=== PATIENT | female | born 1955 | race Hispanic/Latino ===

== ENCOUNTER 2019-03-10 08:52 | Outpatient (CLI) | payer MEDICARE ==
--- NOTE | 2019-03-10 09:05 | RAD ---
XR Shoulder Rt 3 View STANDARD: 03/10/2019 12:00 AM CLINICAL INDICATION: Pain COMPARISON: None. FINDINGS: Fracture:No fracture. Arthropathy:Mild right AC joint osteoarthritis Incidental findings:None of significance. IMPRESSION: 1. No acute osseous abnormality.
== END 2019-03-10 08:53 | disposition home or self-care (01) ==
LOC: SCSRAD 08:52
PROVIDERS: ATTEND Nurse Practitioner Family
DX: M25.511 Pain in right shoulder (principal)

== ENCOUNTER 2019-03-19 12:15 | Outpatient (CLI) | payer MEDICARE ==
--- NOTE | 2019-03-19 13:03 | MMO ---
Bilateral MAMMO Bilat Screen [facility]. CLINICAL HISTORY: Patient is 64 years old and is seen for screening. The patient has no family history of breast cancer. The patient has no personal history of cancer. VIEWS: The views performed were: bilateral craniocaudal with tomosynthesis and bilateral mediolateral oblique with tomosynthesis. FILMS COMPARED: The present examination has been compared to prior imaging studies performed at [facility] on 04/17/2005, 10/17/2006 and 01/15/2012. This study has been interpreted with the assistance of computer-aided detection. MAMMOGRAM FINDINGS: There are scattered fibroglandular densities. There are no suspicious masses, suspicious calcifications, or new areas of architectural distortion. IMPRESSION: THERE IS NO MAMMOGRAPHIC EVIDENCE OF MALIGNANCY. A ROUTINE FOLLOW-UP MAMMOGRAM IN 1 YEAR IS RECOMMENDED. THE RESULTS OF THIS EXAM WERE SENT TO THE PATIENT. ACR BI-RADS Category 1 - Negative MAMMOGRAPHY NOTE: 1. A negative mammogram report should not delay a biopsy if a dominant of clinically suspicious mass is present. 2. Approximately 10% to 15% of breast cancers are not detected by mammography. 3. Adenosis and dense breasts may obscure an underlying neoplasm. Reported by: NEFTALI BLOOM MD Electonically Signed: [id number]
== END 2019-03-19 12:16 | disposition home or self-care (01) ==
LOC: BICMAMMO 12:15
PROVIDERS: ATTEND Nurse Practitioner Family
DX: Z12.31 Encounter for screening mammogram for malignant neoplasm of breast (principal)
CPT/HCPCS: 77063; 77067

== ENCOUNTER 2021-04-07 09:25 | Inpatient (IN) | payer MEDICARE ==
[2021-04-07 09:50] LABS: #Basophils 0.1 thou/uL (0.0-0.2); #Eosinphils 0.2 thou/uL (0.0-0.7); #Lymphocytes 2.5 thou/uL (1.20-3.40); #Monocytes 0.5 thou/uL (0.11-0.59); #Neutrophils 8.4 thou/uL (1.40-6.50); %Basophils 1.1 % (0.0-1.0); %Eosinophils 2.1 % (0.0-10.0); %Lymphocytes 21.5 % (21.0-51.0); %Monocytes 4.2 % (0.0-10.0); %Neutrophils 71.2 % (42.0-75.0); Hemoglobin 15.3 g/dL (12.0-16.0); Mean Corpuscular HGB CONC 33.9 g/dL (32.0-36.0); Mean Corpuscular Hemoglobin 31.9 pg (27.0-31.0); Mean Corpuscular Volume 94.3 fL (78.0-98.0); Mean Platelet Volume 8.6 fL (7.4-10.4); Platelet Count 238 thou/uL (130-400); Red Blood Cell (RBC) Count 4.78 mill/uL (4.20-5.40); White Blood Cell (WBC) Count 11.7 thou/uL (4.8-10.8)
[2021-04-07 10:01] LABS: Prothrombin Time 12.8 sec (12.0-14.7)
[2021-04-07 10:10] LABS: ALT (SGPT) 23 U/L (8-55); AST (SGOT) 18 U/L (5-34); Albumin 4.2 g/dL (3.4-4.8); Alkaline Phosphatase 147 U/L (40-110); Anion Gap 16 mmol/L (10-20); BUN (Urea Nitrogen) 10 mg/dL (9.8-20.1); Bilirubin, Total 0.5 mg/dL (0.2-1.2); Calc. Creatinine Clearance 0 mL/min (70-130); Calcium 9.2 mg/dL (7.8-10.44); Carbon Dioxide 24 mmol/L (23-31); Chloride 105 mmol/L (98-107); Globulin 3.5 g/dL (2.4-3.5); Glucose 154 mg/dL (80-115); Potassium 3.8 mmol/L (3.5-5.1); Protein, Total 7.7 g/dL (5.8-8.1); Sodium 141 mmol/L (136-145)
[2021-04-07] MEDS ORDERED: Acetaminophen 500 MG TAB ONE (12:53)
[2021-04-07] MEDS ORDERED: hydrALAZINE 20 MG/ML VIAL SLOW IVP PRN (12:55)
[2021-04-07] MEDS ORDERED: Ondansetron ODT 4 MG TAB PO PRN (12:58)
[2021-04-07] MEDS ORDERED: Acetaminophen 325 MG TAB PO PRN (12:58)
[2021-04-07] MEDS ORDERED: Ondansetron PF 4 MG/2 ML Vial IVP PRN (12:58)
[2021-04-07] MEDS ORDERED: Aspirin Chewable 81 MG TAB ONE (14:14)
[2021-04-07 17:15] VITALS: BMI 35.3
[2021-04-07] MEDS: Famotidine 20 MG TAB PO SCH (20:59)
[2021-04-07] MEDS ORDERED: Nicotine 14 MG PATCH TD SCH (21:00)
[2021-04-07] MEDS ORDERED: Atorvastatin Calcium 40 MG TAB PO SCH (21:00)
[2021-04-08 05:34] LABS: #Basophils 0.1 thou/uL (0.0-0.2); #Eosinphils 0.4 thou/uL (0.0-0.7); #Lymphocytes 2.9 thou/uL (1.20-3.40); #Monocytes 0.7 thou/uL (0.11-0.59); #Neutrophils 4.7 thou/uL (1.40-6.50); %Basophils 1.2 % (0.0-1.0); %Eosinophils 4.8 % (0.0-10.0); %Lymphocytes 33.2 % (21.0-51.0); %Monocytes 7.3 % (0.0-10.0); %Neutrophils 53.5 % (42.0-75.0); Hemoglobin 13.7 g/dL (12.0-16.0); Mean Corpuscular HGB CONC 32.8 g/dL (32.0-36.0); Mean Corpuscular Hemoglobin 31.4 pg (27.0-31.0); Mean Corpuscular Volume 95.5 fL (78.0-98.0); Platelet Count 215 thou/uL (130-400); RBC Distribution Width 12.1 % (11.5-14.5); Red Blood Cell (RBC) Count 4.35 mill/uL (4.20-5.40); White Blood Cell (WBC) Count 8.8 thou/uL (4.8-10.8)
[2021-04-08 05:54] LABS: Anion Gap 13 mmol/L (10-20); BUN (Urea Nitrogen) 11 mg/dL (9.8-20.1); Calc. Creatinine Clearance 88 mL/min (70-130); Calcium 9.3 mg/dL (7.8-10.44); Carbon Dioxide 26 mmol/L (23-31); Cardiac Risk 4.3 (Less than 4.5); Chloride 107 mmol/L (98-107); Cholesterol 188 mg/dl (< 200 Desired); Glucose 131 mg/dL (80-115); HDL Cholesterol 44 mg/dL (>60 Neg Risk); LDL Cholesterol, Calculated 123 mg/dL; Potassium 3.6 mmol/L (3.5-5.1); Sodium 142 mmol/L (136-145); Triglycerides 105 mg/dL (Less than 150)
[2021-04-08] MEDS ORDERED: Aspirin 81 mg Enteric Coated Tablet PO SCH (09:00)
[2021-04-08] MEDS ORDERED: Non-Formulary Item 1 EACH (Sertraline Hcl [Zoloft] 50 MG Tablet) PO SCH (09:00)
[2021-04-08] MEDS ORDERED: Lisinopril 10 MG TAB PO SCH (09:00)
[2021-04-08] MEDS ORDERED: VENLAFAXINE HCL 75 MG PO SCH (09:00)
[2021-04-08] MEDS: Famotidine 20 MG TAB PO SCH (09:11)
[2021-04-08 15:41] LABS: SARS-CoV-2 PCR by NAA Not Detected (NotDetected)
[2021-04-08 16:07] VITALS: BP 125/70; TEMP 98.5
== END 2021-04-08 18:40 | disposition home or self-care (01) | DRG 69 ==
LOC: ERS 09:25 → ERHOLD 13:32 → NEURO 16:37
PROVIDERS: ADMIT Internal Medicine; ATTEND Internal Medicine
DX: G45.9 Transient cerebral ischemic attack, unspecified (principal); Z20.822 Contact with and (suspected) exposure to COVID-19; I16.0 Hypertensive urgency; R73.03 Prediabetes; I10 Essential (primary) hypertension; E78.5 Hyperlipidemia, unspecified; F17.210 Nicotine dependence, cigarettes, uncomplicated; F32.A Depression, unspecified; Z88.2 Allergy status to sulfonamides; Z90.710 Acquired absence of both cervix and uterus; Z79.899 Other long term (current) drug therapy; Z82.49 Family history of ischemic heart disease and other diseases of the circulatory system
CPT/HCPCS: 36415; 36416; 70450; 70496; 70498; 70551; 71045; 80048; 80053; 80061; 83036; 83735; 84443; 84484; 85025; 85610; 85730; 93005; 93306; U0003; U0005

== ENCOUNTER 2021-04-30 18:33 | Inpatient (IN) | payer MEDICARE ==
[~2021-04-30 18:33] MED LIST: Iopamidol-370 76% 500 ML 1 ML ONE
[2021-04-30 18:56] LABS: #Basophils 0.1 thou/uL (0.0-0.2); #Eosinphils 0.3 thou/uL (0.0-0.7); #Lymphocytes 2.6 thou/uL (1.20-3.40); #Monocytes 0.6 thou/uL (0.11-0.59); #Neutrophils 7.8 thou/uL (1.40-6.50); %Eosinophils 2.6 % (0.0-10.0); %Monocytes 5.1 % (0.0-10.0); %Neutrophils 68.3 % (42.0-75.0); Hemoglobin 14.3 g/dL (12.0-16.0); Mean Corpuscular HGB CONC 33.2 g/dL (32.0-36.0); Mean Corpuscular Hemoglobin 32.3 pg (27.0-31.0); Mean Corpuscular Volume 97.2 fL (78.0-98.0); Mean Platelet Volume 8.2 fL (7.4-10.4); Platelet Count 252 thou/uL (130-400); RBC Distribution Width 12.2 % (11.5-14.5); Red Blood Cell (RBC) Count 4.42 mill/uL (4.20-5.40); White Blood Cell (WBC) Count 11.4 thou/uL (4.8-10.8)
[2021-04-30 19:10] LABS: PTT 30.2 sec (22.9-36.1); Prothrombin Time 13.2 sec (12.0-14.7)
[2021-04-30 19:18] LABS: ALT (SGPT) 19 U/L (8-55); AST (SGOT) 16 U/L (5-34); Albumin 4.2 g/dL (3.4-4.8); Alkaline Phosphatase 136 U/L (40-110); Anion Gap 15 mmol/L (10-20); BUN (Urea Nitrogen) 10 mg/dL (9.8-20.1); Bilirubin, Total 0.4 mg/dL (0.2-1.2); Calc. Creatinine Clearance 0 mL/min (70-130); Calcium 9.6 mg/dL (7.8-10.44); Carbon Dioxide 22 mmol/L (23-31); Chloride 108 mmol/L (98-107); Globulin 3.2 g/dL (2.4-3.5); Glucose 109 mg/dL (80-115); Protein, Total 7.4 g/dL (5.8-8.1)
[2021-04-30 19:28] LABS: Sodium 141 mmol/L (136-145)
[2021-04-30] MEDS ORDERED: Aspirin 325 MG TAB ONE (20:15)
[2021-04-30 20:45] LABS: Bilirubin Negative (Negative); Blood, Urine Negative (Negative); Clarity Clear (Clear); Glucose, Urine (Dipstick) Normal (Negative); Ketone, Urine Negative (Negative); Leukocyte Negative Leu/uL (Negative); Nitrite Negative (Negative); Protein, Urine (Dipstick) Negative (Neg-Trace); Specific Gravity, Urine 1.046 (1.002-1.036); Urobilinogen Normal mg/dL (Less than 2); pH, Urine 6.5 (5.0-9.0)
[2021-04-30 21:46] LABS: Troponin I Less than 0.010 ng/mL (< 0.028)
[2021-04-30 21:48] LABS: SARS-CoV-2 NAA Rapid Test Not Detected (NotDetected)
[2021-04-30 22:41] VITALS: BMI 35.5
[2021-05-01 01:23] LABS: Troponin I Less than 0.010 ng/mL (< 0.028)
[2021-05-01] MEDS ORDERED: Ondansetron PF 4 MG/2 ML Vial IVP PRN (13:26)
[2021-05-01] MEDS: Nicotine 14 MG PATCH TOP SCH (13:40)
[2021-05-01] MEDS ORDERED: Aspirin 81 mg Enteric Coated Tablet PO SCH (14:00)
[2021-05-01] MEDS ORDERED: Clopidogrel Bisulfate 75 MG TAB PO SCH (14:00)
[2021-05-01] MEDS ORDERED: hydrALAZINE 20 MG/ML VIAL SLOW IVP PRN (14:13)
[2021-05-01] MEDS ORDERED: Acetaminophen 500 MG TAB PO PRN (14:13)
[2021-05-01] MEDS ORDERED: Labetalol HCl 100 MG/20 ML VIAL SLOW IVP PRN (14:13)
[2021-05-01] MEDS: Famotidine 20 MG TAB PO SCH (20:29)
[2021-05-01] MEDS: Atorvastatin Calcium 40 MG TAB PO SCH (20:29)
[2021-05-02 05:26] LABS: #Basophils 0.1 thou/uL (0.0-0.2); #Eosinphils 0.5 thou/uL (0.0-0.7); #Lymphocytes 1.1 thou/uL (1.20-3.40); #Monocytes 0.5 thou/uL (0.11-0.59); #Neutrophils 5.8 thou/uL (1.40-6.50); %Basophils 0.9 % (0.0-1.0); %Eosinophils 6.8 % (0.0-10.0); %Lymphocytes 14.1 % (21.0-51.0); %Monocytes 6.4 % (0.0-10.0); %Neutrophils 71.7 % (42.0-75.0); Mean Corpuscular HGB CONC 32.7 g/dL (32.0-36.0); Mean Corpuscular Hemoglobin 31.5 pg (27.0-31.0); Mean Corpuscular Volume 96.5 fL (78.0-98.0); Platelet Count 225 thou/uL (130-400); RBC Distribution Width 12.1 % (11.5-14.5); Red Blood Cell (RBC) Count 4.43 mill/uL (4.20-5.40)
[2021-05-02 05:51] LABS: ALT (SGPT) 20 U/L (8-55); AST (SGOT) 25 U/L (5-34); Albumin 3.7 g/dL (3.4-4.8); Alkaline Phosphatase 120 U/L (40-110); Anion Gap 13 mmol/L (10-20); BUN (Urea Nitrogen) 10 mg/dL (9.8-20.1); Bilirubin, Total 0.5 mg/dL (0.2-1.2); Calc. Creatinine Clearance 86 mL/min (70-130); Calcium 9.7 mg/dL (7.8-10.44); Carbon Dioxide 24 mmol/L (23-31); Cardiac Risk 3.4 (Less than 4.5); Chloride 107 mmol/L (98-107); Cholesterol 148 mg/dl (< 200 Desired); Globulin 3.6 g/dL (2.4-3.5); Glucose 115 mg/dL (80-115); HDL Cholesterol 43 mg/dL (>60 Neg Risk); LDL Cholesterol, Calculated 85 mg/dL; Potassium 3.8 mmol/L (3.5-5.1); Protein, Total 7.3 g/dL (5.8-8.1); Sodium 140 mmol/L (136-145); Triglycerides 99 mg/dL (Less than 150)
[2021-05-02] MEDS: Lisinopril 10 MG TAB PO SCH (08:45)
[2021-05-02] MEDS: Aspirin 81 mg Enteric Coated Tablet PO SCH (08:45)
[2021-05-02] MEDS: Famotidine 20 MG TAB PO SCH ×2 (08:45→21:01)
[2021-05-02] MEDS: Clopidogrel Bisulfate 75 MG TAB PO SCH (08:45)
[2021-05-02] MEDS: Nicotine 14 MG PATCH TOP SCH (15:44)
[2021-05-02] MEDS: Atorvastatin Calcium 40 MG TAB PO SCH (21:01)
[2021-05-03] MEDS: Famotidine 20 MG TAB PO SCH ×2 (08:34→22:02)
[2021-05-03] MEDS: Lisinopril 10 MG TAB PO SCH (08:35)
[2021-05-03] MEDS: Clopidogrel Bisulfate 75 MG TAB PO SCH (08:35)
[2021-05-03] MEDS: Aspirin 81 mg Enteric Coated Tablet PO SCH (08:35)
[2021-05-03] MEDS: Nicotine 14 MG PATCH TOP SCH (13:15)
[2021-05-03] MEDS: Atorvastatin Calcium 40 MG TAB PO SCH (22:02)
[2021-05-04] MEDS: Clopidogrel Bisulfate 75 MG TAB PO SCH (08:23)
[2021-05-04] MEDS: Famotidine 20 MG TAB PO SCH ×2 (08:23→20:49)
[2021-05-04] MEDS: Lisinopril 10 MG TAB PO SCH (08:23)
[2021-05-04] MEDS: Aspirin 81 mg Enteric Coated Tablet PO SCH (08:23)
[2021-05-04] MEDS: Nicotine 14 MG PATCH TOP SCH (12:09)
[2021-05-04] MEDS: Atorvastatin Calcium 40 MG TAB PO SCH (20:50)
[2021-05-05] MEDS: Lisinopril 10 MG TAB PO SCH (08:59)
[2021-05-05] MEDS: Aspirin 81 mg Enteric Coated Tablet PO SCH (08:59)
[2021-05-05] MEDS: Clopidogrel Bisulfate 75 MG TAB PO SCH (08:59)
[2021-05-05] MEDS: Famotidine 20 MG TAB PO SCH ×2 (08:59→22:08)
[2021-05-05] MEDS: Nicotine 14 MG PATCH TOP SCH (14:11)
[2021-05-05] MEDS: Atorvastatin Calcium 40 MG TAB PO SCH (22:08)
[2021-05-06] MEDS: Famotidine 20 MG TAB PO SCH ×2 (08:52→20:57)
[2021-05-06] MEDS: Clopidogrel Bisulfate 75 MG TAB PO SCH (08:52)
[2021-05-06] MEDS: Aspirin 81 mg Enteric Coated Tablet PO SCH (08:52)
[2021-05-06] MEDS: Lisinopril 10 MG TAB PO SCH (09:23)
[2021-05-06] MEDS ORDERED: Sodium Chloride 0.9% 500 ML IV SCH (14:00)
[2021-05-06] MEDS: Nicotine 14 MG PATCH TOP SCH (14:37)
[2021-05-06] MEDS: Atorvastatin Calcium 40 MG TAB PO SCH (20:57)
[2021-05-07] MEDS: Aspirin 81 mg Enteric Coated Tablet PO SCH (07:55)
[2021-05-07] MEDS: Clopidogrel Bisulfate 75 MG TAB PO SCH (07:56)
[2021-05-07] MEDS: Famotidine 20 MG TAB PO SCH ×2 (07:56→22:00)
[2021-05-07] MEDS: Lisinopril 10 MG TAB PO SCH (08:06)
[2021-05-07] MEDS ORDERED: Sodium Chloride 0.9% 500 ML IV SCH (09:30)
[2021-05-07] MEDS: Nicotine 14 MG PATCH TOP SCH (14:16)
[2021-05-07] MEDS: Atorvastatin Calcium 40 MG TAB PO SCH (22:01)
[2021-05-08] MEDS: Clopidogrel Bisulfate 75 MG TAB PO SCH (09:35)
[2021-05-08] MEDS: Aspirin 81 mg Enteric Coated Tablet PO SCH (09:35)
[2021-05-08] MEDS: Famotidine 20 MG TAB PO SCH ×2 (09:36→20:15)
[2021-05-08] MEDS: Nicotine 14 MG PATCH TOP SCH (15:21)
[2021-05-08 17:22] VITALS: BP 120/68; TEMP 98.2
[2021-05-08] MEDS: Atorvastatin Calcium 40 MG TAB PO SCH (20:15)
== END 2021-05-08 20:00 | DRG 65 ==
LOC: ERS 18:33 → NEURO 20:46 → OBSVTOIN 05-01 14:01
PROVIDERS: ADMIT Internal Medicine; ATTEND Internal Medicine
DX: I63.89 Other cerebral infarction (principal); G81.91 Hemiplegia, unspecified affecting right dominant side; Z20.822 Contact with and (suspected) exposure to COVID-19; E78.5 Hyperlipidemia, unspecified; I10 Essential (primary) hypertension; H40.9 Unspecified glaucoma; F17.210 Nicotine dependence, cigarettes, uncomplicated; F32.A Depression, unspecified; I16.0 Hypertensive urgency; R29.810 Facial weakness; R73.03 Prediabetes; I95.9 Hypotension, unspecified; Z88.2 Allergy status to sulfonamides; Z79.82 Long term (current) use of aspirin; Z79.899 Other long term (current) drug therapy; R29.703 NIHSS score 3
CPT/HCPCS: 36415; 36416; 70450; 70496; 70498; 70551; 80053; 80061; 81003; 84484; 85025; 85610; 85730; 93005; 96374; G0378; J2405; J7030; Q9967; U0002

== ENCOUNTER 2025-01-10 10:52 | Outpatient (CLI) | payer OTHER | END 2025-01-10 10:53 | disposition home or self-care (01) | LOC: BICCT 10:52 | PROVIDERS: ATTEND Chiropractor | DX: Z12.31 Encounter for screening mammogram for malignant neoplasm of breast (principal); Z12.2 Encounter for screening for malignant neoplasm of respiratory organs; Z78.0 Asymptomatic menopausal state; F17.210 Nicotine dependence, cigarettes, uncomplicated; M85.88 Other specified disorders of bone density and structure, other site | CPT/HCPCS: 71271; 77063; 77067; 77080 ==